=== PATIENT | male | born 1990 | race Two or more races ===

== ENCOUNTER 2016-12-20 02:56 | Inpatient (IN) | payer MEDICAID, OTHER ==
[~2016-12-20] VITALS: Ht 180.3 cm; Wt 72.3 kg
[2016-12-20] MEDS ORDERED: ESCI10TA PO (03:10)
[2016-12-20] MEDS ORDERED: ARIP5TAB9 PO (03:10)
[2016-12-20 04:23] LABS: BASOPHILS # (AUTO) 0.05 K/uL (0.00-0.20); BASOPHILS % (AUTO) 0.5 % (0.0-2.0); EOSINOPHILS # (AUTO) 0.07 K/uL (0.00-0.70); EOSINOPHILS % (AUTO) 0.66 % (1.0-6.0); HEMATOCRIT 46.8 % (41-53); HEMOGLOBIN 15.9 g/dL (13.5-17.5); LYMPHOCYTES # (AUTO) 2.1 K/uL (1.0-4.8); LYMPHOCYTES % (AUTO) 20.4 % (22.0-44.0); MEAN CORPUSCULAR HEMOGLOBIN 29.7 pg (26.0-34.0); MEAN CORPUSCULAR HGB CONC 33.9 G/dL (31.0-37.0); MEAN CORPUSCULAR VOLUME 88 fL (80-100); MONOCYTES # (AUTO) 0.5 K/uL (0.1-1.0); MONOCYTES % (AUTO) 5.2 % (2.0-9.0); NEUTROPHILS # (AUTO) 7.5 K/uL (1.8-7.7); NEUTROPHILS % (AUTO) 73.3 % (40.0-70.0); PLATELET COUNT (AUTO) 236 K/uL (150-450); RED BLOOD CELL COUNT(AUTO) 5.34 MIL/uL (4.50-5.90); RED CELL DISTRIBUTION WIDTH 13.4 % (11.5-14.5); WHITE BLOOD COUNT (AUTO) 10.3 K/uL (4.5-11.0)
[2016-12-20 04:34] LABS: ANION GAP 7 mmol/L (8-16); CALCIUM, TOTAL 8.7 mg/dL (8.8-10.5); CARBON DIOXIDE 30 mmol/L (22-29); CHLORIDE 107 mmol/L (98-107); CREATININE 1.04 mg/dL (0.60-1.30); GLOMERULAR FILTR. RATE CALC > 60 mL/min (>60); POTASSIUM 3.6 mmol/L (3.5-5.1); SODIUM SERUM 144 mmol/L (136-145); UREA NITROGEN, BLOOD 18 mg/dL (7-18)
[2016-12-20 04:41] LABS: ALANINE AMINOTRANSFERASE 17 U/L (12-78); ALBUMIN 3.5 g/dL (3.4-5.0); ASPARTATE AMINOTRANSFERASE 16 U/L (15-37); BILIRUBIN,TOTAL 0.3 mg/dL (0.1-1.0); TOTAL PROTEIN, SERUM 5.9 g/dL (6.4-8.2)
[2016-12-20] MEDS ORDERED: ZOLPIDEM TARTRATE 10 MG TABLET PO PRN (05:00)
[2016-12-20 05:04] LABS: GLUCOSE, URINE (UA) NEGATIVE (NEGATIVE); KETONES,URINE NEGATIVE (NEGATIVE); LEUKOCYTE ESTERASE ,URINE NEGATIVE (NEGATIVE); OCCULT BLOOD,URINE NEGATIVE (NEGATIVE); PROTEIN,URINE NEGATIVE (NEGATIVE)
[2016-12-20 05:05] LABS: ADD UA MICROSCOPIC NO; APPEARANCE,URINE HAZY (CLEAR)
[2016-12-20 05:09] LABS: CHOL/HDL RATIO 3.8 (4.2-7.3)
[2016-12-20] MEDS: LORazepam 2 MG TABLET PO PRN ×2 (05:11→19:41)
[2016-12-20 06:23] VITALS: BP 144/69
[2016-12-20] MEDS ORDERED: CloNIDine HCL 0.1 MG TABLET PO PRN (07:30)
[2016-12-20] MEDS ORDERED: ONDANSETRON HCL 4 MG TABLET PO PRN (07:30)
[2016-12-20] MEDS ORDERED: ALBUTEROL SULFATE HFA 90 MCG/PUFF 8 GM INHALER IH PRN (07:30)
[2016-12-20] MEDS ORDERED: BENZOCAINE/MENTHOL LOZENGE MM PRN (07:30)
[2016-12-20] MEDS ORDERED: MAG HYDROX/AL HYDROX/SIMETH ES 30 ML SUSPENSION UDCUP PO PRN (07:30)
[2016-12-20] MEDS ORDERED: ACETAMINOPHEN 325 MG TABLET PO PRN (07:30)
[2016-12-20] MEDS ORDERED: LOPERAMIDE HCL 2 MG CAPSULE PO PRN (07:30)
[2016-12-20] MEDS ORDERED: MAGNESIUM HYDROXIDE SUSPENSION 30 ML UDCUP PO PRN (07:30)
[2016-12-20] MEDS ORDERED: IBUPROFEN 600 MG TABLET PO PRN (07:30)
[2016-12-20] MEDS ORDERED: BACITRACIN 28.4 GM OINTMENT TP PRN (07:30)
[2016-12-20] MEDS ORDERED: PETROLATUM,WHITE 71 GM JELLY TP PRN (07:30)
[2016-12-20 09:40] VITALS: BP 128/74
[2016-12-20] MEDS: ARIPiprazole 5 MG TABLET PO SCH (11:48)
[2016-12-20] MEDS: ESCITALOPRAM OXALATE 10 MG TABLET PO SCH (11:49)
[2016-12-20 13:16] LABS: SALICYLATE 1.4 mg/dL (2.8-20.0)
[2016-12-20 16:39] VITALS: BP 125/77
[2016-12-21 07:20] LABS: CHOL/HDL RATIO 3.5 (4.2-7.3); THYROID STIMULATING HORMONE 0.27 uIU/mL (0.36-3.74)
[2016-12-21] MEDS: LORazepam 2 MG TABLET PO PRN ×2 (07:48→12:21)
[2016-12-21 09:38] VITALS: BP 131/75
[2016-12-21] MEDS: ARIPiprazole 5 MG TABLET PO SCH (09:51)
[2016-12-21] MEDS: ESCITALOPRAM OXALATE 10 MG TABLET PO SCH (09:52)
[2016-12-21] MEDS: HALOPERIDOL 5 MG TABLET PO PRN (12:22)
[2016-12-21 19:39] VITALS: BP 128/74
[2016-12-22 02:59] VITALS: BP 118/74
[2016-12-22] MEDS: ESCITALOPRAM OXALATE 10 MG TABLET PO SCH (08:17)
[2016-12-22] MEDS: ARIPiprazole 5 MG TABLET PO SCH (08:17)
[2016-12-22] MEDS: LORazepam 2 MG TABLET PO PRN ×2 (08:21→18:21)
[2016-12-22] MEDS: HALOPERIDOL 5 MG TABLET PO PRN ×2 (08:33→18:21)
[2016-12-22 08:56] VITALS: BP 133/77
[2016-12-22] MEDS ORDERED: HALOPERIDOL LACTATE 5 MG/ML VIAL ONE (09:55)
[2016-12-22] MEDS ORDERED: DiphenhydrAMINE HCL 50 MG/ML VIAL IM ONE (10:00)
[2016-12-22] MEDS ORDERED: LORazepam 2 MG/ML VIAL IM ONE (10:00)
[2016-12-22] MEDS ORDERED: HALOPERIDOL LACTATE 5 MG/ML VIAL IM ONE (10:00)
[2016-12-22 18:22] VITALS: BP 119/79
[2016-12-23 03:34] VITALS: BP 120/88
[2016-12-23] MEDS: LORazepam 2 MG TABLET PO PRN (08:26)
[2016-12-23] MEDS: HALOPERIDOL 5 MG TABLET PO PRN (08:26)
[2016-12-23] MEDS: ARIPiprazole 5 MG TABLET PO SCH (08:26)
[2016-12-23] MEDS: ESCITALOPRAM OXALATE 10 MG TABLET PO SCH (08:26)
[2016-12-23] MEDS ORDERED: ESCI10TA PO (11:19)
[2016-12-23 13:14] VITALS: BP 116/68
== END 2016-12-23 13:35 | disposition home or self-care (01) | DRG 751 ==
LOC: EMS 02:58 → EEVIPCON 02:58 → 3EI 05:24
DX: F33.2 Major depressive disorder, recurrent severe without psychotic features (principal); E46 Unspecified protein-calorie malnutrition; R45.851 Suicidal ideations; E83.51 Hypocalcemia; E55.9 Vitamin D deficiency, unspecified; R73.9 Hyperglycemia, unspecified; Y90.0 Blood alcohol level of less than 20 mg/100 ml; G47.00 Insomnia, unspecified; T43.222A Poisoning by selective serotonin reuptake inhibitors, intentional self-harm, initial encounter; F10.10 Alcohol abuse, uncomplicated; Z79.899 Other long term (current) drug therapy; Z91.5 Personal history of self-harm; Z68.22 Body mass index [BMI] 22.0-22.9, adult; Z71.41 Alcohol abuse counseling and surveillance of alcoholic; Y92.89 Other specified places as the place of occurrence of the external cause
CPT/HCPCS: 82306; 83036; 84443; 87081; 99285; G0480; G0481; J1200; J1630; J2060

== ENCOUNTER 2017-01-03 12:54 | Emergency (ER) | payer MEDICAID, OTHER ==
[~2017-01-03] VITALS: Ht 180.3 cm; Wt 81.8 kg
[~2017-01-03 12:54] MED LIST: ARIP5TAB9 PO; ESCI10TA PO
[2017-01-03 13:25] VITALS: BP 121/75
== END 2017-01-03 14:52 | disposition home or self-care (01) ==
LOC: EMS 12:55
DX: T18.9XXA Foreign body of alimentary tract, part unspecified, initial encounter (principal); S10.11XA Abrasion of throat, initial encounter; W45.8XXA Other foreign body or object entering through skin, initial encounter; Y93.89 Activity, other specified; Y92.89 Other specified places as the place of occurrence of the external cause; Y99.8 Other external cause status
CPT/HCPCS: 74000; 99284

== ENCOUNTER 2017-03-22 20:11 | Inpatient (IN) | payer MEDICAID, OTHER ==
[~2017-03-22] VITALS: Ht 180.3 cm; Wt 72.3 kg
[~2017-03-22 20:11] MED LIST changes: +ARIP10TA8 PO; -ARIP5TAB9 PO; +BUSP10TA23 PO; +DIVA500T35 PO; -ESCI10TA PO; +ESCI20TA PO
[2017-03-23] MEDS ORDERED: ESCI10TA PO (01:28)
[2017-03-23] MEDS ORDERED: ARIP10TA8 PO (01:28)
[2017-03-23] MEDS ORDERED: ZOLPIDEM TARTRATE 10 MG TABLET PO PRN (01:30)
[2017-03-23 02:55] VITALS: BP 107/63
[2017-03-23] MEDS ORDERED: INFLUENZA VIRUS VACCINE QVS 2017-18 (3YR+)/PF 60 MCG/0.5 ML SYRINGE IM ONE (05:30)
[2017-03-23 08:26] LABS: BASOPHILS # (AUTO) 0.03 K/uL (0.00-0.20); BASOPHILS % (AUTO) 0.3 % (0.0-2.0); EOSINOPHILS # (AUTO) 0.05 K/uL (0.00-0.70); EOSINOPHILS % (AUTO) 0.62 % (1.0-6.0); HEMATOCRIT 46.8 % (41-53); LYMPHOCYTES # (AUTO) 2.6 K/uL (1.0-4.8); LYMPHOCYTES % (AUTO) 29.6 % (22.0-44.0); MEAN CORPUSCULAR HEMOGLOBIN 30.2 pg (26.0-34.0); MEAN CORPUSCULAR HGB CONC 34.1 G/dL (31.0-37.0); MEAN CORPUSCULAR VOLUME 89 fL (80-100); MONOCYTES # (AUTO) 0.5 K/uL (0.1-1.0); MONOCYTES % (AUTO) 5.1 % (2.0-9.0); NEUTROPHILS # (AUTO) 5.6 K/uL (1.8-7.7); NEUTROPHILS % (AUTO) 64.3 % (40.0-70.0); PLATELET COUNT (AUTO) 210 K/uL (150-450); RED BLOOD CELL COUNT(AUTO) 5.29 MIL/uL (4.50-5.90); RED CELL DISTRIBUTION WIDTH 13.3 % (11.5-14.5); WHITE BLOOD COUNT (AUTO) 8.8 K/uL (4.5-11.0)
[2017-03-23 08:43] VITALS: BP 127/71
[2017-03-23] MEDS ORDERED: ALBUTEROL SULFATE HFA 90 MCG/PUFF 8 GM INHALER IH PRN (08:45)
[2017-03-23] MEDS ORDERED: ACETAMINOPHEN 325 MG TABLET PO PRN (08:45)
[2017-03-23] MEDS ORDERED: LOPERAMIDE HCL 2 MG CAPSULE PO PRN (08:45)
[2017-03-23] MEDS ORDERED: IBUPROFEN 600 MG TABLET PO PRN (08:45)
[2017-03-23] MEDS ORDERED: BENZOCAINE/MENTHOL LOZENGE MM PRN (08:45)
[2017-03-23] MEDS ORDERED: MAG HYDROX/AL HYDROX/SIMETH ES 30 ML SUSPENSION UDCUP PO PRN (08:45)
[2017-03-23] MEDS ORDERED: PETROLATUM,WHITE 71 GM JELLY TP PRN (08:45)
[2017-03-23] MEDS ORDERED: BACITRACIN 28.4 GM OINTMENT TP PRN (08:45)
[2017-03-23] MEDS ORDERED: MAGNESIUM HYDROXIDE SUSPENSION 30 ML UDCUP PO PRN (08:45)
[2017-03-23] MEDS ORDERED: ONDANSETRON HCL 4 MG TABLET PO PRN (08:45)
[2017-03-23] MEDS ORDERED: CloNIDine HCL 0.1 MG TABLET PO PRN (08:45)
[2017-03-23 08:54] LABS: HEMOGLOBIN A1C 4.9 % (4.5-6.2)
[2017-03-23] MEDS: LORazepam 2 MG TABLET PO PRN ×2 (09:18→20:20)
[2017-03-23 09:41] LABS: ALANINE AMINOTRANSFERASE 22 U/L (12-78); ALBUMIN 4.1 g/dL (3.4-5.0); ANION GAP 6 mmol/L (8-16); ASPARTATE AMINOTRANSFERASE 28 U/L (15-37); BILIRUBIN,TOTAL 0.9 mg/dL (0.1-1.0); CALCIUM, TOTAL 8.9 mg/dL (8.8-10.5); CARBON DIOXIDE 29 mmol/L (22-29); CHLORIDE 104 mmol/L (98-107); GLOMERULAR FILTR. RATE CALC > 60 mL/min (>60); POTASSIUM 3.9 mmol/L (3.5-5.1); SODIUM SERUM 139 mmol/L (136-145); THYROID STIMULATING HORMONE 0.65 uIU/mL (0.36-3.74); TOTAL PROTEIN, SERUM 7.2 g/dL (6.4-8.2); UREA NITROGEN, BLOOD 14 mg/dL (7-18)
[2017-03-23] MEDS: ESCITALOPRAM OXALATE 10 MG TABLET PO SCH (12:04)
[2017-03-23] MEDS: ARIPiprazole 10 MG TABLET PO SCH (12:04)
[2017-03-23 16:00] VITALS: BP 130/69
[2017-03-24 06:49] VITALS: BP 115/57
[2017-03-24 08:19] VITALS: BP 110/75
[2017-03-24] MEDS: ESCITALOPRAM OXALATE 10 MG TABLET PO SCH (08:46)
[2017-03-24] MEDS: ARIPiprazole 10 MG TABLET PO SCH (08:46)
[2017-03-24 16:00] VITALS: BP 115/74
[2017-03-24] MEDS: LORazepam 2 MG TABLET PO PRN (16:36)
[2017-03-25 00:37] VITALS: BP 103/62
[2017-03-25 08:21] VITALS: BP 135/71
[2017-03-25] MEDS: ARIPiprazole 10 MG TABLET PO SCH (08:23)
[2017-03-25] MEDS: ESCITALOPRAM OXALATE 10 MG TABLET PO SCH (08:23)
[2017-03-25] MEDS: LORazepam 2 MG TABLET PO PRN (08:28)
[2017-03-25 16:14] VITALS: BP 128/76
== END 2017-03-25 16:05 | disposition home or self-care (01) | DRG 754 ==
LOC: B3A 03-23 01:33
PROVIDERS: ADMIT Psychiatry & Neurology Child & Adolescent Psychiatry; ATTEND Psychiatry & Neurology Child & Adolescent Psychiatry
DX: F32.9 Major depressive disorder, single episode, unspecified (principal); F41.9 Anxiety disorder, unspecified; G47.00 Insomnia, unspecified; Z72.89 Other problems related to lifestyle; Z71.41 Alcohol abuse counseling and surveillance of alcoholic; Z56.0 Unemployment, unspecified
CPT/HCPCS: 83036; 84439; 84443; 90471

== ENCOUNTER 2018-10-04 18:47 | Emergency (ER) | payer MEDICAID, OTHER ==
[~2018-10-04] VITALS: Ht 180.3 cm; Wt 69.5 kg
[~2018-10-04 18:47] MED LIST changes: -BUSP10TA23 PO; -DIVA500T35 PO; +ESCI10TA PO; -ESCI20TA PO
[2018-10-04 21:20] VITALS: BP 140/84
== END 2018-10-04 21:23 | disposition home or self-care (01) ==
LOC: EMS 18:48
DX: R42 Dizziness and giddiness (principal); F32.9 Major depressive disorder, single episode, unspecified; Z79.899 Other long term (current) drug therapy